=== PATIENT | female | born 1970 | race Caucasian/White ===

== ENCOUNTER 2020-01-10 09:40 | Emergency (ER) | payer OTHER, SELFPAY ==
--- NOTE | 2020-01-10 09:40 | NUR ---
PT HAS RX FOR COVID SWAB, STATES IT IS FOR PREOP. TEO STATES SEND PT TO FRONT LOBBY, PT SENT TO LOBBY
--- NOTE | 2020-01-10 09:50 | NUR ---
PT BACK IN TENT, SECURITY STATES PT SENT BACK FROM FRONT LOBBY TO BE SWABBED IN ER TENT.
--- NOTE | 2020-01-10 10:10 | NUR ---
OBTAINED COVID SWAB
--- NOTE | 2020-01-10 10:15 | NUR ---
COVID SAMPLE WALKED TO LAB
== END 2020-01-10 10:35 | disposition home or self-care (01) ==
LOC: EEVIPCON 09:40 → MED 09:40
DX: Z11.59 Encounter for screening for other viral diseases (principal)
CPT/HCPCS: 99283; U0003

== ENCOUNTER 2020-07-21 10:08 | Outpatient (CLI) | payer OTHER, SELFPAY | END 2020-07-21 23:59 | disposition home or self-care (01) | LOC: MLB 10:08 → EDSTATUS 07-27 07:30 | PROVIDERS: ATTEND Obstetrics & Gynecology | DX: N93.9 Abnormal uterine and vaginal bleeding, unspecified (principal); U07.0 Vaping-related disorder; Z53.8 Procedure and treatment not carried out for other reasons | CPT/HCPCS: U0003 ==